=== PATIENT | female | born 1975 ===

== ENCOUNTER 2016-08-20 12:54 | Emergency (ER) | payer OTHER ==
[2016-08-20 13:18] VITALS: BP 136/81; PULSE 92; RESP 18; TEMP 98; O2SAT 100
--- NOTE | 2016-08-20 13:44 | ED PDOC ---
HPI: Abdomen Time Seen by Provider: 08/20/16 13:29 Chief Complaint (Nursing): Female Genitourinary Chief Complaint (Provider): abdominal pain History Per: Patient, Government Operations Consultant (Melba Denson, Certified Student Union Consultant at bedside) Additional Complaint(s): 41-year-old female presents to emergency Department with 10 day history of lower abdominal pain associated with watery, nonbloody diarrhea. The patient denies fever or chills, no nausea or vomiting. She is tolerating liquids and solids. Patient states whenever she eats anything she has immediate diarrhea afterward. Patient denies any consumption of any foods that could've cause stomach upset. No recent travel. Patient denies any vaginal discharge despite triage note stating otherwise. She states that she has never had intercourse in her life and is not currently sexually active. Past Medical History Reviewed: Historical Data Vital Signs: Last Vital Signs Temp 98.0 F 08/20/16 13:15 Pulse 92 H 08/20/16 13:15 Resp 18 08/20/16 13:15 BP 136/81 08/20/16 13:15 Pulse Ox 100 08/20/16 15:11 - Medical History PMH: No Chronic Diseases - Surgical History Surgical History: No Surg Hx - Family History Family History: States: No Known Family Hx - Living Arrangements Living Arrangements: Alone - Social History Current smoker - smoking cessation education provided: No Alcohol: None Drugs: Denies - Home Medications Home Medications: Ambulatory Orders Medication Instructions Recorded Dicyclomine [Bentyl] 10 mg PO QID PRN #20 cap 08/20/16 - Allergies Allergies/Adverse Reactions: Allergies Allergy/AdvReac Type Severity Reaction Status Date / Time No Known Allergies Allergy Verified 08/20/16 13:15 Review of Systems ROS Statement: Except As Marked, All Systems Reviewed And Found Negative Constitutional: Negative for: Fever, Chills Cardiovascular: Negative for: Chest Pain Respiratory: Negative for: Cough Gastrointestinal: Positive for: Abdominal Pain, Diarrhea. Negative for: Nausea , Vomiting Genitourinary Female: Negative for: Dysuria, Frequency, Incontinence, Vaginal Discharge, Vaginal Bleeding Physical Exam - Reviewed Nursing Documentation Reviewed: Yes Vital Signs Reviewed: Yes - Physical Exam Appears: Positive for: Well Skin: Negative for: Rash Eye Exam: Positive for: Normal appearance Cardiovascular/Chest: Positive for: Regular Rate, Rhythm Respiratory: Positive for: Normal Breath Sounds Gastrointestinal/Abdominal: Positive for: Soft. Negative for: Tenderness, Distended, Guarding, Rebound Back: Negative for: L CVA Tenderness, R CVA Tenderness Extremity: Positive for: Normal ROM Neurologic/Psych: Positive for: Alert, Oriented - Laboratory Results Result Diagrams: 08/20/16 13:55 08/20/16 14:15 Urine POC: Negative Urine dip results: Negative for: Leukocyte Esterase, Blood, Nitrate, Ketones, Glucose, Bilirubin, Protein - ECG O2 Sat by Pulse Oximetry: 100 Pulse Ox Interpretation: Normal Medical Decision Making Medical Decision Makin41 year old with abdominal pain and diarrhea for 10 days. Plan: Urine dip and test CBC CMP Lipase IVF PO bentyl and tylenol Patient feels much better after meds were given. She is aware of all diagnostic test results in clearing mildly elevated LFT's, all questions answered. Copies of labs given to patient. Patient given prescription for Bentyl and was advised to continue with [id number] Tylenol for pain. Nutritional instructions given for relief of diarrhea. Patient was referred to clinic for follow-up and is aware she can return to ED if acutely worse in any time. Disposition - Clinical Impression Clinical Impression: Abdominal pain, Diarrhea - Patient ED Disposition Is Patient to be Admitted: No Counseled Patient/Family Regarding: Studies Performed, Diagnosis, Need For Followup, Rx Given - Disposition Referrals: [facility] [Outside] Disposition: Routine/Home Disposition Time: 15:19 Condition: IMPROVED Additional Instructions: Drink plenty of fluids and follow bland diet. Follow dietary instructions. Take prescription meds as directed as needed for pain. Follow-up in 2-3 days in clinic. Prescriptions: Dicyclomine [Bentyl] 10 mg PO QID PRN #20 cap PRN Reason: Gi Distress Instructions: Nutrition Tips for Relief of Diarrhea (ED), Acute Diarrhea (ED), Abdominal Pain (ED) Print Language: MONTENEGRIN Results - Lab Results Lab Results: 08/20/16 08/20/16 14:15 13:55 WBC 9.2 RBC 4.34 Hgb 12.6 Hct 38.7 MCV 89.3 MCH 29.1 MCHC 32.7 L RDW 14.7 H Plt Count 353 MPV 8.0 Neut % (Auto) 55.0 Lymph % (Auto) 34.8 [place] % (Auto) 6.8 Eos % (Auto) 2.2 Baso % (Auto) 1.2 Neut # 5.1 Lymph # 3.2 [place] # 0.6 Eos # 0.2 Baso # 0.1 Sodium 140 Potassium 3.8 Chloride 106 Carbon Dioxide 24 Anion Gap 13 BUN 8 Creatinine 0.6 L Est GFR ( Amer) > 60 Est GFR (Non-Af Amer) > 60 Random Glucose 102 Calcium 8.9 Total Bilirubin 0.2 AST 45 H ALT 73 H Alkaline Phosphatase 64 Total Protein 6.6 Albumin 3.7 Globulin 2.9 Albumin/Globulin Ratio 1.3
[2016-08-20] MEDS ORDERED: Sodium Chloride 0.9% 1,000 ML IV STA (13:54)
[2016-08-20 14:09] LABS: BASO # 0.1 K/uL (0.0-0.2); BASO % 1.2 % (0.0-2.0); EOS # 0.2 K/uL (0.0-0.7); EOS % 2.2 % (0.0-4.0); HEMATOCRIT 38.7 % (34.0-47.0); LYMPH # 3.2 K/uL (1.0-4.3); LYMPH % 34.8 % (20.0-40.0); MEAN CELL VOLUME 89.3 fl (81.0-99.0); MEAN CORPUSCULAR HEMOGLOBIN 29.1 pg (27.0-31.0); MEAN CORPUSCULAR HGB CONC 32.7 g/dL (33.0-37.0); MONO # 0.6 K/uL (0.0-0.8); MONO % 6.8 % (0.0-10.0); NEUT # 5.1 K/uL (1.8-7.0); RED CELL DISTRIBUTION WIDTH 14.7 % (11.5-14.5); WHITE BLOOD COUNT 9.2 K/uL (4.8-10.8)
[2016-08-20 14:43] LABS: ALB/GLOB RATIO 1.3 (1.0-2.1); ALKALINE PHOSPHATASE 64 U/L (38-126); ALT/SGPT 73 U/L (9-52); AST/SGOT 45 U/L (14-36); BILIRUBIN,TOTAL 0.2 mg/dl (0.2-1.3); BLOOD UREA NITROGEN 8 mg/dl (7-17); CALCIUM 8.9 mg/dL (8.4-10.2); CARBON DIOXIDE 24 mmol/L (22-30); CHLORIDE 106 mmol/L (98-107); GFR AFRICAN-AMERICAN > 60; GLUCOSE,RANDOM 102 mg/dL (65-105); POTASSIUM 3.8 MMOL/L (3.6-5.0); SODIUM 140 mmol/l (132-148); TOTAL PROTEIN 6.6 G/DL (6.3-8.2)
== END 2016-08-20 15:28 | disposition home or self-care (01) ==
LOC: H.ER 12:54
DX: R10.9 Unspecified abdominal pain (principal); R19.7 Diarrhea, unspecified